=== PATIENT | female | born 1990 | race Caucasian/White ===

== ENCOUNTER 2017-11-24 13:03 | Emergency (ER) | payer BC, MEDICAID ==
--- NOTE | 2017-11-24 13:48 | RADIOLOGY REPORT (SQ) ---
EXAM DESCRIPTION: HAND LEFT 3 VIEWS COMPLETED DATE/TIME: 11/24/2017 1:37 pm REASON FOR STUDY: injured hand COMPARISON: None. EXAM PARAMETERS: NUMBER OF VIEWS: Three views. TECHNIQUE: AP, lateral and oblique radiographic images acquired of the left hand. LIMITATIONS: None. FINDINGS: MINERALIZATION: Normal. BONES: No acute fracture or dislocation. No worrisome bone lesions. JOINTS: No effusions. SOFT TISSUES: No soft tissue swelling. No foreign body. OTHER: No other significant finding. IMPRESSION: NEGATIVE STUDY OF THE LEFT HAND. NO RADIOGRAPHIC EVIDENCE OF ACUTE INJURY. TECHNICAL DOCUMENTATION: JOB ID: [id number] [employer]- All Rights Reserved Reading location - IP/workstation name: [email or web address]
--- NOTE | 2017-11-24 13:54 | ER Document Report ---
HPI - HPI Pain Level: 4 - REPRODUCTIVE Reproductive: DENIES: : - MUSCULOSKELETAL Musculoskeletal: REPORTS: Extremity pain Past Medical History - Social History Smoking Status: Former Smoker Chew tobacco use (# tins/day): No Frequency of alcohol use: None Drug Abuse: None Family History: Reviewed & Not Pertinent Patient has suicidal ideation: No Patient has homicidal ideation: No Endocrine Medical History: Denies: Hx Diabetes Mellitus Type 1, Hx Diabetes Mellitus Type 2 Renal/ Medical History: Denies: Hx Peritoneal Dialysis GI Medical History: Reports: Hx Gastroesophageal Reflux Disease, Hx Ulcer Past Surgical History: Reports: Hx Section, Hx Cholecystectomy, Hx Oral Surgery - wisdom, Hx Tonsillectomy - Immunizations Hx Diphtheria, Pertussis, Tetanus Vaccination: No Vertical Provider Document - INFECTION CONTROL TRAVEL OUTSIDE OF THE [place] IN LAST 30 DAYS: No - RESPIRATORY O2 Sat by Pulse Oximetry: 100 Course - Vital Signs Vital signs: Temp Pulse Resp BP Pulse Ox 98.6 F 74 16 135/83 H 100 11/24/17 13:10 11/24/17 13:10 11/24/17 13:10 11/24/17 13:10 11/24/17 13:10
--- NOTE | 2017-11-24 13:55 | ER Document Report ---
ED General - General Chief Complaint: Hand Pain Stated Complaint: LEFT HAND PAIN Mode of Arrival: Ambulatory TRAVEL OUTSIDE OF THE [place] IN LAST 30 DAYS: No - HPI Notes: 27-year-old female presents today with complaints of left hand pain after she fell with an outstretched hand 1 day ago. reports pain is 7/10, achy. Tried OTC ibuprofen with some relief.. worse with movement. better at rest. Ports tenderness to left thumb denies any n/t in hand or finger. Denies any lacerations. Denies previous hx of wrist pain. Denies hitting head or change in loc. Did not try any icing or elevation. denies any other area of injury. Denies fevers, chills, chest pain,palpitations, shortness of breath, dyspnea, nausea, vomiting, diarrhea, abdominal pain, hematuria,blurred vision, double vision, loss of vision, speech changes, LH, dizziness, syncope, headaches, wheezing, ST, URI, neck pain, weakness, bowel or bladder dysfunction, saddle anesthesia, numbness or tingling in bilateral upper or lower extremities equally , muscle paralysis, weakness in bilateral upper or lower extremities equally or rash. . - Related Data Allergies/Adverse Reactions: amoxicillin trihydrate [From Augmentin] Allergy (Intermediate, Verified 06:35) VOMITING Potassium Clavulanate * [From Augmentin] Allergy (Intermediate, Verified 06:35) VOMITING pertussis vaccine,adsorbed [Pertussis Vaccine,Adsorbed] Allergy (Unknown, Verified 10/25/14 06:35) VOMITING Pediazol Allergy (Unknown, Uncoded 05/01/14 20:40) Past Medical History - General Information source: Patient - Social History Smoking Status: Unknown if Ever Smoked Chew tobacco use (# tins/day): No Frequency of alcohol use: None Drug Abuse: None Family History: Reviewed & Not Pertinent Patient has suicidal ideation: No Patient has homicidal ideation: No Endocrine Medical History: Denies: Hx Diabetes Mellitus Type 1, Hx Diabetes Mellitus Type 2 Renal/ Medical History: Denies: Hx Peritoneal Dialysis GI Medical History: Reports: Hx Gastroesophageal Reflux Disease, Hx Ulcer Past Surgical History: Reports: Hx Section, Hx Cholecystectomy, Hx Oral Surgery - wisdom, Hx Tonsillectomy - Immunizations Hx Diphtheria, Pertussis, Tetanus Vaccination: No Review of Systems - Review of Systems Constitutional: No symptoms reported EENT: No symptoms reported Cardiovascular: No symptoms reported Respiratory: No symptoms reported Gastrointestinal: No symptoms reported Genitourinary: No symptoms reported Female Genitourinary: No symptoms reported Musculoskeletal: See HPI Skin: No symptoms reported Hematologic/Lymphatic: No symptoms reported Neurological/Psychological: No symptoms reported Physical Exam - Vital signs Vitals: Temp Pulse Resp BP Pulse Ox 98.6 F 74 16 135/83 H 100 11/24/17 13:10 11/24/17 13:10 11/24/17 13:10 11/24/17 13:10 11/24/17 13:10 - Notes Notes: PHYSICAL EXAMINATION: GENERAL: Well-appearing, well-nourished and in no acute distress. HEAD: Atraumatic, normocephalic. EYES: Pupils equal round and reactive to light, extraocular movements intact, conjunctiva are normal. ENT: Nares patent, oropharynx clear without exudates. Moist mucous membranes. NECK: Normal range of motion, supple without lymphadenopathy LUNGS: Breath sounds clear to auscultation bilaterally and equal. No wheezes rales or rhonchi. HEART: Regular rate and rhythm without murmurs ABDOMEN: Soft, nontender, nondistended abdomen. No guarding, no rebound. No masses appreciated. Female : deferred Musculoskeletal: Normal range of motion, no pitting or edema. No cyanosis. left wrist pain with flexion, extension, inversion, eversion of wrist. digits in right and left with full aprom. Full motor and sensory function in TERE. 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 Snuffbox tenderness positive on left. radial pulses + 2 BUE equally. Negative kanavels sign. No open wounds or drainage from wrist. No vascular compromise. full motor and sensory function with medial, radial and ulnar nerves. NEUROLOGICAL: Cranial nerves grossly intact. Normal speech, normal gait. Normal sensory, motor exams PSYCH: Normal mood, normal affect. SKIN: Warm, Dry, normal turgor, no rashes or lesions noted. Course - Re-evaluation Re-evalutation: 11/24/17 14:22 Discussed the results of the radiology as well as the diagnosis at great length. Will place patient in a cockup splint. Apply heat 20 minutes on 20 minutes off several times a day. Follow-up with behavioral intervention specialist if not getting better in 1 week. Also consider re-x-ray if symptoms remain the same. Work note given. Discussed the need to return to the ER for any new or worsening sx. Patient understands to take the Rx as directed. All questions answered. Patient comfortable with the decision to go home. - Vital Signs Vital signs: Temp Pulse Resp BP Pulse Ox 98.6 F 74 16 135/83 H 100 11/24/17 13:10 11/24/17 13:10 11/24/17 13:10 11/24/17 13:10 11/24/17 13:10 Discharge - Discharge Clinical Impression: Sprain of left hand Qualifiers: Encounter type: initial encounter Qualified Code(s): S63.92XA - Sprain of unspecified part of left wrist and hand, initial encounter Condition: Good Disposition: HOME, SELF-CARE Additional Instructions: Sprained Finger You have a finger sprain. A sprain is an over-stretching or tearing of the ligaments which guard the joints. The injury may require a few weeks of protection while it heals. The usual treatment for a finger sprain is a splint, ice packs, and elevation. As pain and swelling decrease, cautious use of the finger is allowed. Often the injured finger is taped to an uninjured finger to provide a "moving splint" during the later healing. Complete recovery takes about three or four weeks. Your physician has assessed the seriousness of the ligament injury in your finger, and has outlined the initial treatment plan. Understand that this treatment may change, depending on how your finger progresses. If further exams were recommended, it is important that you follow up as instructed. Call the doctor at any time if there is severe pain, increasing swelling, or numbness in the finger. Ice & Elevation Apply ice packs frequently against the painful area. Many different schedules are recommended, such as "20 minutes on, 20 minutes off" or "one hour ice, two hours rest." If you need to work, you may need to go longer between ice treatments. You should plan to have the area ice packed AT LEAST one- fourth of the time. The ice should be applied over the wrap, tape, or splint, or over a layer of cloth -- not directly against the skin. Some ice bags have a built-in cloth and can be put directly on the skin. Your injured part should be elevated as much as possible over the next 48 hours. Try to keep the injury above the level of the heart. Avoid use of the injured area. Elevation and rest will decrease the swelling. Please follow up with the [facility] [address] [place] [address] Wear cock up splint as directed. Follow-up with behavioral intervention specialist within 1 week. Take [id number] ibuprofen and Tylenol as needed for pain. Elevate after applying ice recommended 1 day, apply heat 20 minutes on 20 minutes off several times a day. Pain becomes increasingly worse after 5-7 days, consider re-x-ray for an occult fracture. Return to the emergency room symptoms become worse. Return immediately for any new or worsening symptoms. Follow up with primary care provider, call tomorrow to make followup appointment. Forms: Return to Work Referrals: CYNDIE RIGGS MD [ACTIVE STAFF] - Follow up in 1 week
[2017-11-24] MEDS ORDERED: KETOROLAC TROMETHAMINE 60 MG/2 ML SDV IM ONE (14:13)
[2017-11-24 14:47] VITALS: BP 123/87
== END 2017-11-24 14:50 | disposition home or self-care (01) ==
LOC: ER 13:03
DX: S63.92XA Sprain of unspecified part of left wrist and hand, initial encounter (principal); W19.XXXA Unspecified fall, initial encounter; Y93.89 Activity, other specified; Z88.0 Allergy status to penicillin; Z88.7 Allergy status to serum and vaccine; Z88.1 Allergy status to other antibiotic agents
CPT/HCPCS: 99283; 73130; L3908; J1885

== ENCOUNTER 2019-05-30 10:36 | Emergency (ER) | payer SELFPAY ==
--- NOTE | 2019-05-30 11:00 | ER Document Report ---
ED Medical Screen (RME) - General Chief Complaint: Chest Pain Stated Complaint: CHEST PAIN Time Seen by Provider: 05/30/19 10:53 Primary Care Provider: FATEMEH CHAMPION PA-C [Primary Care Provider] - Follow up as needed Mode of Arrival: Ambulatory Information source: Patient Notes: Patient is a 29-year-old female presenting to the emergency department chief complaint of chest pain. Patient describes the chest pain as in the epigastric area that radiates straight through to her back. She does report some mild nausea and dizziness. She reports her gallbladder has been removed. She denies any cardiac history. Exam: Lung sounds clear and equal bilaterally. Tenderness to the epigastric area and right upper quadrant. I have greeted and performed a rapid initial assessment of this patient. A comprehensive ED assessment and evaluation of the patient, analysis of test results and completion of the medical decision making process will be conducted by additional ED providers. I have specifically instructed the patient or family members with the patient to immediately return to any nursing staff should anything change in the patient's condition or with their chief complaint. This medical record was dictated with voice recognizing software. There may be grammatical, syntax errors that are unintended. TRAVEL OUTSIDE OF THE [place] IN LAST 30 DAYS: No - Related Data Allergies/Adverse Reactions: amoxicillin trihydrate [From Augmentin] Allergy (Intermediate, Verified 10/25/14 06:35) VOMITING Potassium Clavulanate * [From Augmentin] Allergy (Intermediate, Verified 10/25/14 06:35) VOMITING pertussis vaccine,adsorbed [Pertussis Vaccine,Adsorbed] Allergy (Unknown, Verified 10/25/14 06:35) VOMITING Pediazol Allergy (Unknown, Uncoded 05/01/14 20:40) Past Medical History Endocrine Medical History: Denies: Hx Diabetes Mellitus Type 1, Hx Diabetes Mellitus Type 2 Renal/ Medical History: Denies: Hx Peritoneal Dialysis GI Medical History: Reports: Hx Gastroesophageal Reflux Disease, Hx Ulcer Past Surgical History: Reports: Hx Section, Hx Cholecystectomy, Hx Oral Surgery - wisdom, Hx Tonsillectomy - Immunizations Hx Diphtheria, Pertussis, Tetanus Vaccination: No Physical Exam - Vital signs Vitals: Temp Pulse Resp BP Pulse Ox 98.2 F 86 16 134/89 H 100 05/30/19 10:40 05/30/19 10:40 05/30/19 10:40 05/30/19 10:40 05/30/19 10:40 Course - Vital Signs Vital signs: Temp Pulse Resp BP Pulse Ox 98.2 F 86 16 134/89 H 100 05/30/19 10:40 05/30/19 10:40 05/30/19 10:40 05/30/19 10:40 05/30/19 10:40 Doctor's Discharge - Discharge Referrals: FATEMEH CHAMPION PA-C [Primary Care Provider] - Follow up as needed
[2019-05-30 11:34] LABS: ABSOLUTE EOSINOPHILS # (AUTO) 0.1 10^3/uL (0.0-0.6); ABSOLUTE LYMPHOCYTES (AUTO) 2.7 10^3/uL (0.5-4.7); ABSOLUTE MONOCYTES (AUTO) 0.4 10^3/uL (0.1-1.4); ABSOLUTE NEUT (AUTO) 4.8 10^3/uL (1.7-8.2); BASOPHILS % (AUTO) 0.3 % (0-2); EOSINOPHILS % (AUTO) 1.6 % (0-6); HEMATOCRIT 43.6 % (36.0-47.0); LYMPHOCYTES % (AUTO) 33.2 % (13-45); MEAN CORPUSCULAR HEMOGLOBIN 31.2 pg (27.0-33.4); MEAN CORPUSCULAR HGB CONC 34.5 g/dL (32.0-36.0); MEAN CORPUSCULAR VOLUME 91 fl (80-97); MONOCYTES % (AUTO) 5.2 % (3-13); PLATELET COUNT 226 10^3/uL (150-450); RED BLOOD COUNT 4.81 10^6/uL (3.72-5.28); RED CELL DISTRIBUTION WIDTH 12.4 % (11.5-14.0); SEGMENTED NEUTROPHILS % (AUTO) 59.7 % (42-78); TOTAL CELLS COUNTED % (AUTO) 100 %
--- NOTE | 2019-05-30 11:39 | RADIOLOGY REPORT (SQ) ---
EXAM DESCRIPTION: CHEST 2 VIEWS COMPLETED DATE/TIME: 05/30/2019 11:31 am REASON FOR STUDY: chest pain COMPARISON: 10/24/2014 EXAM PARAMETERS: NUMBER OF VIEWS: two views TECHNIQUE: Digital Frontal and Lateral radiographic views of the chest acquired. RADIATION DOSE: NA LIMITATIONS: none FINDINGS: LUNGS AND PLEURA: No opacities, masses or pneumothorax. No pleural effusion. MEDIASTINUM AND HILAR STRUCTURES: No masses or contour abnormalities. HEART AND VASCULAR STRUCTURES: Heart normal size. No evidence for failure. BONES: No acute findings. HARDWARE: None in the chest. OTHER: No other significant finding. IMPRESSION: NO ACUTE RADIOGRAPHIC FINDING IN THE CHEST. TECHNICAL DOCUMENTATION: JOB ID: [id number] [employer]- All Rights Reserved Reading location - IP/workstation name: [email or web address]
[2019-05-30 11:51] LABS: ALBUMIN 4.8 g/dL (3.5-5.0); ALKALINE PHOSPHATASE 107 U/L (38-126); ANION GAP 11 (5-19); ASPARTATE AMINO TRANSFERASE 18 U/L (14-36); BILIRUBIN,DIRECT 0.2 mg/dL (0.0-0.4); BILIRUBIN,TOTAL 0.5 mg/dL (0.2-1.3); BLOOD UREA NITROGEN 10 mg/dL (7-20); CALCIUM 10.2 mg/dL (8.4-10.2); CARBON DIOXIDE 26 mmol/L (22-30); CHLORIDE 105 mmol/L (98-107); GLUCOSE 97 mg/dL (75-110); POTASSIUM 4.3 mmol/L (3.6-5.0); TOTAL PROTEIN 7.7 g/dL (6.3-8.2)
--- NOTE | 2019-05-30 12:52 | RADIOLOGY REPORT (SQ) ---
EXAM DESCRIPTION: U/S ABDOMEN LTD W/DOPPLER COMPLETED DATE/TIME: 05/30/2019 12:42 pm REASON FOR STUDY: RUQ pain COMPARISON: 10/24/2014 TECHNIQUE: Dynamic and static grayscale images acquired of the abdomen and recorded on PACS. Franco ryan selected color Doppler and spectral images recorded. LIMITATIONS: None. FINDINGS: PANCREAS: No masses. Visualized pancreatic duct normal caliber. LIVER: Normal size Echo texture normal. No focal masses. LIVER VASCULATURE: Normal directional flow of the main portal vein and hepatic veins. GALLBLADDER: Surgically absent. ULTRASOUND-DETECTED UGARTE'S SIGN: Negative. INTRAHEPATIC DUCTS AND COMMON DUCT: CBD and intrahepatic ducts normal caliber. No filling defects. AORTA: No aneurysm. RIGHT KIDNEY: The right kidney measures 10.9 cm in length. Normal echogenicity. No solid or susp icious masses. No hydronephrosis. No calcifications. PERITONEAL AND RIGHT PLEURAL SPACE: No ascites or effusions. OTHER: No other significant findings. IMPRESSION: Prior cholecystectomy. No other significant findings. TECHNICAL DOCUMENTATION: JOB ID: [id number] [employer]- All Rights Reserved Reading location - IP/workstation name: [email or web address]
--- NOTE | 2019-05-30 13:53 | EKG REPORT ---
SEVERITY:- NORMAL ECG - SINUS RHYTHM : Confirmed by: Blaine Michael MD 30-May-2019 13:52:44
--- NOTE | 2019-05-30 14:54 | ER Document Report ---
ED General - General Chief Complaint: Chest Pain Stated Complaint: CHEST PAIN Time Seen by Provider: 05/30/19 10:53 Primary Care Provider: FATEMEH CHAMPION PA-C [Primary Care Provider] - Follow up as needed Mode of Arrival: Ambulatory Notes: 29-year-old female with history of peptic ulcer disease, cholecystectomy and C- section presents to the emergency department with chief complaint of chest pain and upper abdominal/epigastric pain. Patient describes the chest pain as in the epigastric area that radiates straight through to her back. She does report some mild nausea and dizziness. Patient denies any fevers or recent illness, did complain of some chills when she had the pain, denies any acute shortness of breath or dyspnea on exertion, denies any diarrhea or constipation, denies urin ann symptoms. She denies any personal or family cardiac history. TRAVEL OUTSIDE OF THE [place] IN LAST 30 DAYS: No - Related Data Allergies/Adverse Reactions: amoxicillin trihydrate [From Augmentin] Allergy (Intermediate, Verified 10/25/14 06:35) VOMITING Potassium Clavulanate * [From Augmentin] Allergy (Intermediate, Verified 06:35) VOMITING pertussis vaccine,adsorbed [Pertussis Vaccine,Adsorbed] Allergy (Unknown, Zahra ified 10/25/14 06:35) VOMITING Pediazol Allergy (Unknown, Uncoded 05/01/14 20:40) Past Medical History - General Information source: Patient - Social History Smoking Status: Current Some Day Smoker Family History: Reviewed & Not Pertinent Patient has suicidal ideation: No Patient has homicidal ideation: No Endocrine Medical History: Denies: Hx Diabetes Mellitus Type 1, Hx Diabetes Mellitus Type 2 Renal/ Medical History: Denies: Hx Peritoneal Dialysis GI Medical History: Reports: Hx Gastroesophageal Reflux Disease, Hx Ulcer Past Surgical History: Reports: Hx Section, Hx Cholecystectomy, Hx Oral Surgery - wisdom, Hx Tonsillectomy - Immunizations Hx Diphtheria, Pertussis, Tetanus Vaccination: No Review of Systems - Review of Systems Constitutional: See HPI EENT: No symptoms reported Cardiovascular: See HPI Respiratory: See HPI Gastrointestinal: See HPI Genitourinary: See HPI Female Genitourinary: No symptoms reported Musculoskeletal: No symptoms reported Skin: No symptoms reported Hematologic/Lymphatic: No symptoms reported Neurological/Psychological: No symptoms reported Physical Exam - Vital signs Vitals: Temp Pulse Resp BP Pulse Ox 98.2 F 86 16 134/89 H 100 05/30/19 10:40 05/30/19 10:40 05/30/19 10:40 05/30/19 10:40 05/30/19 10:40 - Notes Notes: PHYSICAL EXAMINATION: Reviewed vital signs and charting by RN GENERAL: Alert, interacts well. No acute distress. HEAD: Normocephalic, atraumatic. EYES: Pupils equal and round. Extraocular movements intact. ENT: Oral mucosa moist, tongue midline. NECK: Full range of motion. Trachea midline. LUNGS: Clear to auscultation bilaterally, no wheezes, rales, or rhonchi. No respiratory distress. HEART: Regular rate and rhythm. No murmur ABDOMEN: soft, mild right upper quadrant tenderness to palpation. No distention. Bowel sounds present EXTREMITIES: Moves all 4 extremities spontaneously. No edema, No cyanosis. PSYCH: Normal affect, normal mood. SKIN: Warm, dry, normal turgor. No rashes or lesions noted. Course - Re-evaluation Re-evalutation: 05/30/19 15:00 Patient overall well-appearing and nontoxic. All lab work within normal limits. Lipase normal. Troponin negative. Heart score 0. Do not feel that we need to get a delta troponin as this patient is extremely low risk and due to her history of peptic ulcer disease and the location of her pain I suspect more GI pathology than a cardiac pathology. Patient with history of cholecystectomy. Right upper quadrant abdominal ultrasound negative for any acute pathology. I do not feel that we need to proceed to a CT abdomen/pelvis at this time as patient has not had any hematochezia or significant abdominal concerns. Pain could represent phantom pain from previous cholecystectomy potential colic. I reassured patient that her work-up was normal and she was very happy with that and wants to go home. She is stable for discharge. - Vital Signs Vital signs: Temp Pulse Resp BP Pulse Ox 98.2 F 86 18 134/81 H 100 05/30/19 10:40 05/30/19 10:40 05/30/19 14:01 05/30/19 14:01 05/30/19 14:01 - Laboratory Result Diagrams: 05/30/19 11:18 05/30/19 11:18 Discharge - Discharge Clinical Impression: Abdominal pain Qualifiers: Abdominal location: right upper quadrant Qualified Code(s): R10.11 - Right upper quadrant pain Chest pain Qualifiers: Chest pain type: unspecified Qualified Code(s): R07.9 - Chest pain, unspecified Condition: Good Disposition: HOME, SELF-CARE Additional Instructions: You were seen today for chest pain and abdominal pain. The exact cause of your pain is unclear. However, based on your cardiac enzyme testing, lab work, chest x-ray, and EKG it does not appear that it is from an immediately life- threatening cause at this time. Although your testing here is normal is critical that you follow-up with your primary care physician for continued evaluation of this chest pain/estelita pain and potential stress testing for your heart to completely close the loop on the chest pain. I recommended you see your physician within the next 24-48 hours to be evaluated for consideration of a stress test. Please return to emergency department immediately if you have worsening of your chest pain or abdominal pain, shortness of breath, vomiting, become unable to exert yourself due to pain or difficulty breathing, you pass out, or have any pain that radiates into your arms, jaw, or back. Please also return if you have any additional symptoms that are concerning to you. Forms: Return to Work Referrals: FATEMEH CHAMPION PA-C [Primary Care Provider] - Follow up as needed
[2019-05-30 16:53] VITALS: BP 134/92
== END 2019-05-30 17:12 | disposition home or self-care (01) ==
LOC: ER 10:36
DX: R07.9 Chest pain, unspecified (principal); R10.11 Right upper quadrant pain; F17.200 Nicotine dependence, unspecified, uncomplicated
CPT/HCPCS: 36415; 71046; 76705; 80053; 83690; 84484; 85025; 93005; 93010; 93976; 99285

== ENCOUNTER → 2019-12-23 | Outpatient (CLI) | payer SELFPAY ==
[2019-12-23 12:17] LABS: A TYPE INFLUENZA AG NEGATIVE (NEGATIVE); B INFLUENZA AG NEGATIVE (NEGATIVE)
== END ==
LOC: RDC 10:55
PROVIDERS: ATTEND Registered Nurse
DX: Z20.828 Contact with and (suspected) exposure to other viral communicable diseases (principal)
CPT/HCPCS: 87070; 87635; 87804; 87880

== ENCOUNTER 2020-01-06 11:01 | Emergency (ER) | payer BC ==
--- NOTE | 2020-01-06 11:20 | ER Document Report ---
ED Medical Screen (RME) - General Chief Complaint: Dizziness Stated Complaint: DIZZINESS Time Seen by Provider: 01/06/20 11:17 Notes: HPI: 29-year-old female presenting to the emergency department complaining of sudden onset of tachycardia with shortness of breath this morning. Patient states that she took her antidepressants this morning and shortly afterwards felt like her heart rate increased suddenly, did not actually measure her heart rate. States that she had some shortness of breath and pressure in the chest while this occurred. States it lasted slightly over an hour and is now resolving. No history of anything similar. States she was at her PCP office yesterday and they did draw blood work to check her thyroid. Patient states she has had upper respiratory symptoms over the last 3 to 4 weeks but tested negative for coronavirus 2 weeks ago I have greeted and performed a rapid initial assessment of this patient. A comprehensive ED assessment and evaluation of the patient, analysis of test results and completion of the medical decision making process will be conducted by additional ED providers PHYSICAL EXAMINATION: Lung sounds are clear to auscultation, regular rate and rhythm, EKG normal sinus rhythm with a ventricular rate of 64 without other ectopy. Alert and oriented x3 answers all questions appropriately, normal gait I have greeted and performed a rapid initial assessment of this patient. A comprehensive ED assessment and evaluation of the patient, analysis of test results and completion of medical decision making process will be conducted by an additional ED providers. TRAVEL OUTSIDE OF THE [place] IN LAST 30 DAYS: No - Related Data Allergies/Adverse Reactions: amoxicillin trihydrate [From Augmentin] Allergy (Intermediate, Verified 01/06/20 11:12) VOMITING Potassium Clavulanate * [From Augmentin] Allergy (Intermediate, Verified 01/06/20 11:12) VOMITING pertussis vaccine,adsorbed [Pertussis Vaccine,Adsorbed] Allergy (Unknown, Verified 01/06/20 11:12) VOMITING Pediazol Allergy (Unknown, Uncoded 01/06/20 11:12) Past Medical History Endocrine Medical History: Denies: Hx Diabetes Mellitus Type 1, Hx Diabetes Mellitus Type 2 Renal/ Medical History: Denies: Hx Peritoneal Dialysis GI Medical History: Reports: Hx Gastroesophageal Reflux Disease, Hx Ulcer Past Surgical History: Reports: Hx Section, Hx Cholecystectomy, Hx Oral Surgery - wisdom, Hx Tonsillectomy - Immunizations Hx Diphtheria, Pertussis, Tetanus Vaccination: No Physical Exam - Vital signs Vitals: Temp Pulse Resp BP Pulse Ox 98.2 F 71 20 136/76 H 97 01/06/20 11:11 01/06/20 11:11 01/06/20 11:11 01/06/20 11:11 01/06/20 11:11 Course - Vital Signs Vital signs: Temp Pulse Resp BP Pulse Ox 98.2 F 71 20 136/76 H 97 01/06/20 11:11 01/06/20 11:11 01/06/20 11:11 01/06/20 11:11 01/06/20 11:11
[2020-01-06 11:37] LABS: ABSOLUTE BASOPHILS # (AUTO) 0.1 10^3/uL (0.0-0.2); ABSOLUTE EOSINOPHILS # (AUTO) 0.3 10^3/uL (0.0-0.6); ABSOLUTE LYMPHOCYTES (AUTO) 2.2 10^3/uL (0.5-4.7); ABSOLUTE MONOCYTES (AUTO) 0.5 10^3/uL (0.1-1.4); ABSOLUTE NEUT (AUTO) 6.1 10^3/uL (1.7-8.2); BASOPHILS % (AUTO) 0.7 % (0-2); EOSINOPHILS % (AUTO) 2.9 % (0-6); HEMATOCRIT 41.1 % (36.0-47.0); HEMOGLOBIN 14.5 g/dL (12.0-15.5); MEAN CORPUSCULAR HEMOGLOBIN 32.6 pg (27.0-33.4); MEAN CORPUSCULAR HGB CONC 35.2 g/dL (32.0-36.0); MEAN CORPUSCULAR VOLUME 93 fl (80-97); PLATELET COUNT 225 10^3/uL (150-450); RED BLOOD COUNT 4.43 10^6/uL (3.72-5.28); RED CELL DISTRIBUTION WIDTH 12.5 % (11.5-14.0); SEGMENTED NEUTROPHILS % (AUTO) 67.4 % (42-78); TOTAL CELLS COUNTED % (AUTO) 100 %; WHITE BLOOD COUNT 9.1 10^3/uL (4.0-10.5)
--- NOTE | 2020-01-06 11:49 | RADIOLOGY REPORT (SQ) ---
EXAM DESCRIPTION: CHEST 2 VIEWS IMAGES COMPLETED DATE/TIME: 01/06/2020 11:36 am REASON FOR STUDY: chest pain COMPARISON: 05/30/2019 EXAM PARAMETERS: NUMBER OF VIEWS: two views TECHNIQUE: Digital Frontal and Lateral radiographic views of the chest acquired. RADIATION DOSE: NA LIMITATIONS: none FINDINGS: LUNGS AND PLEURA: No opacities, masses or pneumothorax. No pleural effusion. MEDIASTINUM AND HILAR STRUCTURES: No masses or contour abnormalities. HEART AND VASCULAR STRUCTURES: Heart normal size. No evidence for failure. BONES: No acute findings. HARDWARE: None in the chest. OTHER: No other significant finding. IMPRESSION: NO ACUTE RADIOGRAPHIC FINDING IN THE CHEST. TECHNICAL DOCUMENTATION: JOB ID: [id number] [employer]- All Rights Reserved Reading location - IP/workstation name: [email or web address]
[2020-01-06 11:59] LABS: ALBUMIN 4.4 g/dL (3.5-5.0); ALKALINE PHOSPHATASE 91 U/L (38-126); ANION GAP 8 (5-19); ASPARTATE AMINO TRANSFERASE 18 U/L (14-36); BILIRUBIN,TOTAL 0.3 mg/dL (0.2-1.3); BLOOD UREA NITROGEN 13 mg/dL (7-20); CALCIUM 9.7 mg/dL (8.4-10.2); CARBON DIOXIDE 24 mmol/L (22-30); CHLORIDE 107 mmol/L (98-107); GLUCOSE 107 mg/dL (75-110); POTASSIUM 4.5 mmol/L (3.6-5.0); TOTAL PROTEIN 7.4 g/dL (6.3-8.2)
--- NOTE | 2020-01-06 13:07 | ER Document Report ---
ED General - General Chief Complaint: Palpitations Stated Complaint: DIZZINESS Time Seen by Provider: 01/06/20 11:17 Primary Care Provider: FATEMEH CHAMPION PA-C [Primary Care Provider] - Follow up as needed Mode of Arrival: Ambulatory Information source: Patient TRAVEL OUTSIDE OF THE [place] IN LAST 30 DAYS: No - HPI Notes: Patient presents complaint of palpitations and some shortness of breath. She states it was worse this morning is gotten better now. She states she has had this several times in the last couple of days. She states she does have trouble with anxiety and is currently medicated for that. She denies any previous history of cardiac disease or arrhythmias. She states she has not had any significant clots in her lungs or legs in the past. She states that her sister did have some clots when she was with a baby. No known trauma or rashes. Her symptoms have been mild to moderate. They are worse with exertion and better with rest. They do not radiate. They have been intermittent. - Related Data Allergies/Adverse Reactions: amoxicillin trihydrate [From Augmentin] Allergy (Intermediate, Verified 01/06/20 11:12) VOMITING Potassium Clavulanate * [From Augmentin] Allergy (Intermediate, Verified 01/06/20 11:12) VOMITING pertussis vaccine,adsorbed [Pertussis Vaccine,Adsorbed] Allergy (Unknown, Verified 01/06/20 11:12) VOMITING Pediazol Allergy (Unknown, Uncoded 01/06/20 11:12) Past Medical History - General Information source: Patient - Social History Smoking Status: Current Every Day Smoker Chew tobacco use (# tins/day): No Frequency of alcohol use: None Drug Abuse: None Family History: Reviewed & Not Pertinent Patient has suicidal ideation: No Patient has homicidal ideation: No Endocrine Medical History: Denies: Hx Diabetes Mellitus Type 1, Hx Diabetes Mellitus Type 2 Renal/ Medical History: Denies: Hx Peritoneal Dialysis GI Medical History: Reports: Hx Gastroesophageal Reflux Disease, Hx Ulcer Past Surgical History: Reports: Hx Section, Hx Cholecystectomy, Hx Oral Surgery - wisdom, Hx Tonsillectomy - Immunizations Hx Diphtheria, Pertussis, Tetanus Vaccination: No Review of Systems - Review of Systems Constitutional: denies: Chills, Fever Cardiovascular: Palpitations. denies: Chest pain Respiratory: Short of breath. denies: Cough -: Yes All other systems reviewed and negative Physical Exam - Vital signs Vitals: Temp Pulse Resp BP Pulse Ox 98.2 F 71 20 136/76 H 97 01/06/20 11:11 01/06/20 11:11 01/06/20 11:11 01/06/20 11:11 01/06/20 11:11 Interpretation: Normal - General General appearance: Appears well, Alert - HEENT Head: Normocephalic, Atraumatic Eyes: Normal Pupils: PERRL - Respiratory Respiratory status: No respiratory distress Chest status: Nontender Breath sounds: Normal Chest palpation: Normal - Cardiovascular Rhythm: Regular Heart sounds: Normal auscultation Murmur: No - Abdominal Inspection: Normal Distension: No distension Bowel sounds: Normal Tenderness: Nontender Organomegaly: No organomegaly - Back Back: Normal, Nontender - Extremities General upper extremity: Normal inspection, Nontender, Normal color, Normal ROM, Normal temperature General lower extremity: Normal inspection, Nontender, Normal color, Normal ROM, Normal temperature, Normal weight bearing. No: Zion's sign - Neurological Neuro grossly intact: Yes Cognition: Normal Orientation: AAOx4 [place] Coma Scale Eye Opening: Spontaneous [place] Coma Scale Verbal: Oriented S[place] Coma Scale Motor: Obeys Commands [place] Coma Scale Total: 15 Speech: Normal Motor strength normal: LUE, RUE, LLE, RLE Sensory: Normal - Psychological Associated symptoms: Normal affect, Normal mood - Skin Skin Temperature: Warm Skin Moisture: Dry Skin Color: Normal Course - Vital Signs Vital signs: Temp Pulse Resp BP Pulse Ox 98.2 F 71 20 136/76 H 97 01/06/20 11:11 01/06/20 11:11 01/06/20 11:11 01/06/20 11:11 01/06/20 11:11 - Laboratory Result Diagrams: 01/06/20 11:25 01/06/20 11:25 - Diagnostic Test Radiology reviewed: Image reviewed, Reports reviewed - EKG Interpretation by Me EKG shows normal: Sinus rhythm Rate: Normal - 64 [place]/QRS: No: Right axis deviation, Left axis deviation Discharge - Discharge Clinical Impression: Anxiety Condition: Stable Disposition: HOME, SELF-CARE Instructions: Palpitations (Irregular or Rapid Heartrate) ([facility]) Additional Instructions: Please call your primary care doctor soon as possible to arrange follow-up Forms: Return to Work Referrals: FATEMEH CHAMPION PA-C [Primary Care Provider] - Follow up as needed
[2020-01-06 13:38] VITALS: BP 127/81
--- NOTE | 2020-01-06 21:56 | EKG REPORT ---
SEVERITY:- OTHERWISE NORMAL ECG - SINUS ARRHYTHMIA, RATE [id number] : Confirmed by: Mariana Rodriguez MD 06-Jan-2020 21:55:44
== END 2020-01-06 13:38 | disposition home or self-care (01) ==
LOC: ER 11:01
DX: F41.9 Anxiety disorder, unspecified (principal); R00.2 Palpitations; R06.02 Shortness of breath; F17.200 Nicotine dependence, unspecified, uncomplicated; Z79.899 Other long term (current) drug therapy; Z88.0 Allergy status to penicillin; Z88.7 Allergy status to serum and vaccine; Z88.1 Allergy status to other antibiotic agents
CPT/HCPCS: 36415; 71046; 80053; 84443; 84484; 84703; 85025; 85379; 93005; 93010; 99285